=== PATIENT | female | born 2000 | race Two or more races ===

== ENCOUNTER → 2024-08-13 | Outpatient (CLI) | payer MEDICAID, SELFPAY ==
--- NOTE | 2024-08-13 15:00 | XR_ITS ---
Examination: OB Transvaginal ultrasound of the pelvis, complete Technique: Transvaginal sonographic images pelvis performed using burgos scale imaging Exam date and time: August 13, 2024 1754 hrs. Indications: Diagnosis high risk , preeclampsia of Findings: Uterus 11.6 cm CRL 6.1 cm corresponds to 12 weeks 4 days gestational age Cardiac motion 166 BPM Ovaries obscured by bowel gas Impression: Viable intrauterine gestation 12 weeks 4 days.
== END | disposition home or self-care (01) ==
PROVIDERS: PCP Nurse Practitioner Family; Referring Provider Obstetrics & Gynecology; Visit Provider Obstetrics & Gynecology
DX: O09.91 Supervision of high risk pregnancy, unspecified, first trimester (principal); Z3A.12 12 weeks gestation of pregnancy
CPT/HCPCS: 76817

== ENCOUNTER 2024-08-15 10:10 | Emergency (ER) | payer MEDICAID, SELFPAY ==
[2024-08-15 10:12] VITALS: BMI 30.7
[2024-08-15 10:56] VITALS: BP 135/78; PULSE 83; RESP 16; TEMP 36.9; O2SAT 100
--- NOTE | 2024-08-15 11:04 | XR_ITS ---
Examination: Duplex scan of the lower extremity, unilateral left Date and time of exam: August 15, 2024 1117 hrs. Indications: Left leg warmth and edema 3 days Technique: Duplex scan of the extremity veins using B-mode/grayscale imaging and Doppler spectral analysis and color flow Attention is directed to internal echogenicity, compression and augmentation involving these veins, color flow assessment, spectral analysis Findings: Major deep venous structures in the extremity demonstrate normal course and caliber. There is no evidence of deep vein thrombosis. Normal color flow and spectral analysis Impression: Negative for DVT..
--- NOTE | 2024-08-15 12:34 | EDNOTE_ITS ---
<Statement entered by Sadaf Anthony MD - 08/18/24 07:01> As co-signing physician, I was present and available for consult prn. I concur with the plan and care as documented by the midlevel provider. Lower Extremity Injury RME/HPI General Chief Complaint: Extremity Injury, Lower Stated Complaint: LEFT LEG SWELLING, 14 WK PREG R/O DVT Time Seen by Provider: 08/15/24 10:59 Arrival date/time: 08/15/24 10:10 24-year-old female presents emergency department today for complaints of left leg pain patient reports approximately 14 weeks was instructed to come to the ER to rule out DVT Limitations: no limitations Related Data Previous Rx's ?Medication ?Instructions ?Recorded hydrocodone 5 mg-acetaminophen 300 1 tab PO Q8H PRN pa in #20 tabs 12/27/20 mg tablet ibuprofen 800 mg tablet 800 mg PO Q8H #30 tabs 12/27 famotidine 20 mg tablet 20 mg PO QDAY #30 tabs 04/27 sucralfate 1 gram tablet (Carafate) 1 g PO BID #30 tab s 04/27/22 Allergies Allergy/AdvReac Type Severity Reaction Status Date / Time No Known Drug Allergies Allergy Unknown Verified 08/15/24 10:13 Review of Systems Review of Systems Systems Reviewed: All systems reviewed, normal except as documented Constitutional Constitutional: Reports system reviewed and no additional complaints, except as documented, Denies fever(s) and Denies headache(s) Eyes Eyes: Reports system reviewed and no additional complaints, except as documented and Denies blurry vision ENT Ears, Nose, Mouth, and Throat: Reports system reviewed and no additional complaints, except as documented, Denies headache(s), Denies nasal congestion and Denies nasal discharge Cardiovascular Cardiovascular: Reports system reviewed and no additional complaints, except as documented, Denies chest pain and Denies dyspnea Respiratory Respiratory: Reports system reviewed and no additional complaints, except as documented, Denies chest congestion, Denies cough and Denies dyspnea Gastrointestinal Gastrointestinal: Reports system reviewed and no additional complaints, except as documented and Denies abdominal pain Musculoskeletal Musculoskeletal: Reports system reviewed and no additional complaints, except as documented and Reports other (Pain leg left) Integumentary/Breasts Skin/Breast: Reports system reviewed and no additional complaints, except as documented and Denies rash Neurologic Neurologic: Reports system reviewed and no additional complaints, except as documented, Reports as per HPI and Denies headache(s) Past Medical History Past Medical History NEUROLOGIC: Negative Neurological Disorders or Seizures CARDIAC: Negative Cardiac Disorders or Congestive Heart Failure RESPIRATORY: Negative Chronic Obstructive Pulmonary Disease (COPD) GASTROINTESTINAL: Negative Gastrointestinal Disorders, Hepatitis or Colorectal Cancer GENITOURINARY: Positive Genitourinary Disorders; Negative Renal Disease or Prostate Cancer REPRODUCTIVE: Negative Breast Cancer or Testicular Cancer MUSCULOSKELETAL: Negative Musculoskeletal Disorders or Bone Cancer ENDOCRINE: Negative Endocrine Disorders, Diabetes Mellitus Type 1 or Diabetes Mellitus Type 2 HEMATOLOGIC: Negative Blood Disorders or Anemia OTHER HISTORY: Positive Hospitalization; Negative Autoimmune Disease, Down Syndrome, Developmental Delay, Shingles, Falls, Blood Transfusions, Blood Transfusion Reaction, Anesthesia Reactions, Organ Transplant, Chemotherapy, Radiation Therapy, Hyperbaric Therapy, MRSA, VRSA, Vancomycin-Resistant Enterococci, Human Immunodeficiency Virus (HIV), Chicken Pox, Measles, Mumps, Rubella (Vietnamese Measles), Pertussis, Clostridium Difficile, Cancer, Breast Cancer, Cervical Cancer, Colorectal Cancer, Lung Cancer, Ovarian Cancer, Prostate Cancer or Testicular Cancer Family History FAMILY HISTORY: Negative Family Psychiatric Problems, Family Respiratory Disorders, Family Cardiac Disorders, Family Gastrointestinal Problems, Family Cancer, Family Surgery or Family Anesthesia Reaction Surgical History SURGICAL: Positive Section; Negative Organ Transplant Social History SMOKING STATUS: Never smoker SECOND HAND EXPOSURE: No ED Exam General Limitations: Present no limitations General appearance: Present alert and in no apparent distress Head Head exam: Present atraumatic Eye Eye exam: Present normal appearance, PERRL and EOMI ENT ENT exam: Present normal exam, normal oropharynx and mucous membranes moist Neck Neck exam: Present normal inspection, full ROM and trachea midline Chest Chest inspection: Present normal inspection and symmetric chest wall rise Respiratory Respiratory exam: Present normal lung sounds bilaterally Cardiovascular Cardiovascular exam: Present regular rate, normal rhythm and normal heart sounds Abdominal Exam Abdominal exam: Present soft and normal bowel sounds Extremities Exam Extremities exam: Present full ROM, tenderness, normal capillary refill and other (Left leg pain); Absent pedal edema, joint swelling or calf tenderness Back Exam Back exam: Present normal inspection and full ROM Neurological Exam Neurological exam: Present alert, oriented X3 and CN II-XII intact Psychiatric Psychiatric exam: Present normal affect and normal mood Skin Skin exam: Present warm, dry, intact and normal color Course Quality Measures none Orders Category Date Time Status US venous doppler LE LT Stat Exams 08/15/24 11:04 Completed Vital Signs Vital signs: Vital Signs Temperature 98.4 F 08/15/24 10:56 Pulse Rate 83 08/15/24 10:56 Respiratory Rate 16 08/15/24 10:56 Blood Pressure 135/78 H 08/15/24 10:56 Pulse Oximetry (%) 100 08/15/24 10:56 Oxygen Delivery Method Room Air 08/15/24 10:56 O2 saturation 100% room air with normal limits Extremity Injury, Lower MDM Narrative MDM Narrative:: 24-year-old female presents emergency department today for complaints of left leg pain patient reports approximately 14 weeks was instructed to come to the ER to rule out DVT On exam patient well-appearing patient does not appear ill or toxic in no acute distress patient is no bruising or swelling to her leg no erythema DVT is unlikely but ultrasound obtained no acute abnormality noted Patient walks with steady gait Patient discharged home in no distress to follow-up with primary care doctor in the next 24 to 48 hours and for any worsening symptoms to return to the ER immediately Patient data External records reviewed:: [facility] previous records Clinical information provided by:: patient Social determinants that could affect healthcare access:: none Patient has the following chronic illnesses:: None How is presenting disease/condition affected by chronic disease/condition?: no chronic disease Evaluation data The following diagnostics were reviewed and interpreted by me:: radiology exam(s) Lab and/or radiology exams considered but not ordered:: Radiology Interpretation Summary: Reviewed by me Medications / Prescriptions Medications or Prescriptions considered but not ordered:: Given no meds Medication administrations:: Given no meds Consultations Consultation(s) initiated? (list below): No Diagnosis Extremity Injury, Lower Differential Diagnosis: other (Muscle sprain, muscle strain, DVT) Most likely diagnosis given after review of the tests above:: Muscle strain Admission Indicated Admission indicated?: not indicated Admission Request Was there a request for admission?: No Disposition Plan Disposition Plan: Discharge Discharge Attestation Discharge Attestation: The patient and all family members were given an opportunity to ask questions and understood the discharge instructions. Discharge instructions specifically effects, indications for sooner follow up or return to the emergency department, and the expected course of current diagnosis. Patient condition: Stable Discharge Plan Plan Patient Disposition: HOME (Self Care) Disposition Comment: Stable Prescriptions/Referrals Prescriptions/Med Rec: No Action ibuprofen 800 mg tablet 800 mg PO Q8H Qty: 30 3RF hydrocodone-acetaminophen 5-300 mg tablet 1 tab PO Q8H MDD 4 PRN (Reason: pain) Qty: 20 0RF famotidine 20 mg tablet 20 mg PO QDAY Qty: 30 1RF sucralfate [Carafate] 1 gram tablet 1 g PO BID Qty: 30 1RF Problem List Clinical Impression: Left leg pain Patient/Caregiver Discharge Instructions Education Materials: ED RICE Additional Instructions: Please follow up with your primary care doctor in the next 24-48hrs for any worsening symptoms return here immediately Print Language: German Stand Alone Forms: Iraida Award Info., Work/School Release, Patient Portal Info Letter PA/TRIAL JUSTICE Supervising Physician PA/TRIAL JUSTICE Supervising Physician: dr anthoyn
== END 2024-08-15 12:46 | disposition home or self-care (01) ==
LOC: SERX 12:55
PROVIDERS: Emergency Provider Emergency Medicine; PCP Nurse Practitioner Family
DX: O26.892 Other specified pregnancy related conditions, second trimester (principal); M79.605 Pain in left leg; Z3A.14 14 weeks gestation of pregnancy
CPT/HCPCS: 93971; 99284

== ENCOUNTER 2024-11-16 11:32 | Observation (INO) | payer MEDICAID, SELFPAY ==
[2024-11-16] VITALS (32 sets, daily range): BP systolic 99–113; BP diastolic 54–69; PULSE 72–86; RESP 18–98; TEMP 36.8; O2SAT 97–100; BMI 32.4
--- NOTE | 2024-11-16 12:11 | XR_ITS ---
Examination: Complete OB ultrasound greater than 14 weeks Date and time of exam: November 16, 2024 1306 hours INDICATIONS: Vaginal bleeding today, 26 week by history Findings: Viable intrauterine single fetus with single amniotic sac presentation cephalic spine maternal right Cardiac motion 141 BPM Placenta anterior grade 2 no abruption Umbilical cord insertion 3 vessel seen Amniotic fluid index 11.7 cm Cervix 2.8 cm Right ovary 3.8 cm arterial flow Left ovary 2.8 cm arterial flow. Composite estimated gestational age based on BPD, head circumference, abdominal circumference, femur length is 26 weeks 0 days Estimated weight 887 g. Survey of intracranial anatomy, spinal anatomy, abdominal anatomy, four-chamber heart performed with no abnormalities identified. IMPRESSION: Viable intrauterine gestation cephalic presentation No placenta previa or placental abruption.
[2024-11-16] MEDS: SIMETHICONE 80 MG CHEW PO ×2 (12:34)
--- NOTE | 2024-11-16 14:15 | PC.NURSE ---
1410 discharge instructions reviewed, pretem labor precautions, kick counts, copy given, pt agrees/underastands.
== END 2024-11-16 14:15 | disposition home or self-care (01) ==
PROVIDERS: Admitting Provider Specialist; Visit Provider Specialist
DX: O26.852 Spotting complicating pregnancy, second trimester (principal); O26.892 Other specified pregnancy related conditions, second trimester; R10.9 Unspecified abdominal pain; Z3A.26 26 weeks gestation of pregnancy
CPT/HCPCS: 59025; 59899; 76805; A9270

== ENCOUNTER 2024-12-16 15:59 | Observation (INO) | payer MEDICAID, SELFPAY ==
[2024-12-16] VITALS (37 sets, daily range): BP systolic 104–113; BP diastolic 60–68; PULSE 79–109; RESP 14–98; TEMP 37.1; O2SAT 97–99; BMI 33.7
[2024-12-16 17:05] LABS: Collection Type, Urine Clean Catch
[2024-12-16 17:46] LABS: FFN Specimen Descripton Clr Colrless Aqueous; Fetal Fibronectin Negative (Negative)
[2024-12-16 18:23] LABS: Bacteria,Urine Rare; Bilirubin,Urine Negative (Negative); Blood,Urine Negative (Negative); Clarity,Urine Turbid (Clear/Hazy); Color,Urine Yellow (Lt Yel-Yel); Glucose, Urine Negative (Negative); Ketones,Urine Negative (Negative); Leukocyte Esterase,Urine Positive (Negative); Nitrite,Urine Negative (Negative); PH,Urine 6.5 (5.0-7.0); Protein,Urine Negative (Neg - Trace); RBC,Urine 3 /hpf (0-3); Specific Gravity,Urine 1.015 (1.001-1.035); Squamous Epithelial Cell,Urine 14 /hpf (0-5); Urobilinogen,Urine Negative mg/dL (0.0-1.0); WBC,Urine 4 /hpf (0-5)
[2024-12-16] MEDS: cefTRIAXone 1,000 MG, LIDOCAINE 1% 20 ML 2.1 ML IM (19:03)
== END 2024-12-16 19:11 | disposition home or self-care (01) ==
PROVIDERS: Admitting Provider Obstetrics & Gynecology; PCP Physician Assistant; Visit Provider Obstetrics & Gynecology
DX: O26.893 Other specified pregnancy related conditions, third trimester (principal); Z3A.30 30 weeks gestation of pregnancy; R10.30 Lower abdominal pain, unspecified
CPT/HCPCS: 59025; 59899; 81001; 82731; 87086; 96372; J0696; J3490

== ENCOUNTER 2024-12-25 13:47 | Outpatient (AMB) | payer MEDICAID, SELFPAY ==
[2024-12-25 14:22] VITALS: BP 117/75; PULSE 88; RESP 17; TEMP 36.3; O2SAT 98; BMI 34.2
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
== END 2024-12-25 14:48 | disposition home or self-care (01) ==
LOC: HODSOBC 13:47
PROVIDERS: Supervising Provider Advanced Practice Midwife; Visit Provider Advanced Practice Midwife
DX: O09.293 Supervision of pregnancy with other poor reproductive or obstetric history, third trimester (principal); O34.219 Maternal care for unspecified type scar from previous cesarean delivery; O26.843 Uterine size-date discrepancy, third trimester; Z3A.31 31 weeks gestation of pregnancy; Z28.21 Immunization not carried out because of patient refusal
CPT/HCPCS: 99215; G0463

== ENCOUNTER 2025-01-18 10:37 | Outpatient (AMB) | payer MEDICAID, SELFPAY ==
[2025-01-18 10:45] VITALS: BP 135/89; PULSE 97; RESP 16; TEMP 36.2; O2SAT 98; BMI 35.2
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
== END 2025-01-18 11:25 | disposition home or self-care (01) ==
LOC: HODSOBC 10:37
PROVIDERS: Supervising Provider Obstetrics & Gynecology; Visit Provider Obstetrics & Gynecology
DX: O09.293 Supervision of pregnancy with other poor reproductive or obstetric history, third trimester (principal); O34.219 Maternal care for unspecified type scar from previous cesarean delivery; Z3A.35 35 weeks gestation of pregnancy
CPT/HCPCS: 99213; G0463

== ENCOUNTER 2025-01-23 09:12 | Outpatient (AMB) | payer MEDICAID, SELFPAY ==
[2025-01-23 09:39] VITALS: BP 111/70; PULSE 92; RESP 16; TEMP 36.2; O2SAT 98; BMI 35.2
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
== END 2025-01-23 10:07 | disposition home or self-care (01) ==
LOC: HODSOBC 09:12
PROVIDERS: Supervising Provider Obstetrics & Gynecology; Visit Provider Obstetrics & Gynecology
DX: O09.293 Supervision of pregnancy with other poor reproductive or obstetric history, third trimester (principal); O34.219 Maternal care for unspecified type scar from previous cesarean delivery; Z3A.35 35 weeks gestation of pregnancy
CPT/HCPCS: 99213; G0463

== ENCOUNTER 2025-02-04 10:37 | Outpatient (AMB) | payer MEDICAID, SELFPAY ==
[2025-02-04 11:40] VITALS: BP 128/75; PULSE 86; RESP 16; TEMP 36.5; O2SAT 98; BMI 35.4
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
== END 2025-02-04 11:53 | disposition home or self-care (01) ==
LOC: HODSOBC 10:37
PROVIDERS: Supervising Provider Obstetrics & Gynecology; Visit Provider Obstetrics & Gynecology
DX: O09.293 Supervision of pregnancy with other poor reproductive or obstetric history, third trimester (principal); O34.219 Maternal care for unspecified type scar from previous cesarean delivery; Z36.85 Encounter for antenatal screening for Streptococcus B; Z3A.37 37 weeks gestation of pregnancy
CPT/HCPCS: 99214; G0463

== ENCOUNTER 2025-02-14 10:18 | Inpatient (IN) | payer MEDICAID, SELFPAY ==
[2025-02-14] VITALS (14 sets, daily range): BP systolic 106–131; BP diastolic 49–77; PULSE 68–99; RESP 13–19; TEMP 36.6–36.9; O2SAT 19–100; BMI 37.0; BMI 38.1
--- NOTE | 2025-02-14 11:49 | ESHP_ITS ---
Documentation for date of: 02/14/25 OB Labor/Induct. HPI History of Present Illness Chief complaint: Schedule repeat : 3 Para: 2 Term pregnancies: 2 pregnancies: 0 Living children: 2 History of Abortions: Spontaneous and Elective: 0 History of Vaginal deliveries: 0 History of sections: Yes (x2, 2018, 2020) History of : No Date of last menstrual period: 05/02/24 DOMONIQUE: 02/21/25 Gestational Age (weeks): 39 Gestational Age (days): 0 Gestational age based on last menstrual period: 41 History of present illness: 24-year-old 3 para 2 at 39 weeks presents for scheduled repeat low- transverse . Patient denies any contractions or leakage of fluid or vaginal bleeding and reports adequate movements. Patient received initial care at [facility] and she transferred over to the [facility] service at 32 weeks. All her records were reviewed as scanned into her chart Labs Labs: Positive: Rubella Titre, Negative: RPR, Hepatitis B, HIV and Group Beta Strep and Unknown: Chlamydia, Gonorrhea, Herpes Type 1, Herpes Type 2 and Covid-19 Past Medical History Surgical History SURGICAL: Positive Section (x2, 2018, 2020) Meds Home Medications and Allergies Home Medications ?Medication ?Instructions ?Recorded ?Confirmed ?Type aspirin 81 mg tablet,delayed 81 mg PO BID 11/16/2401/31 History release Allergies Allergy/AdvReac Type Severity Reaction Status Date / Time No Known Drug Allergies Allergy Unknown Verified 02/14/25 10:31 OB Exam Physical Exam Vital signs: Temp Pulse Resp BP 98.1 F 99 18 128/77 02/14/25 11:00 02/14/25 10:50 02/14/25 11:00 02/14/25 10:50 Constitutional Constitutional: no acute distress Routine HEENT Exam Head: Present normocephalic and atraumatic Eye: Present EOMI and PERRL ENT: Present mucous membranes moist Routine Neck Exam Neck: Present supple and trachea midline Routine Cardiovascular Exam Cardiovascular: Present RRR Routine Abdominal Exam Abdominal: Present soft and normoactive bowel sounds Detailed Labor and Delivery Exam Dilation (cm): 0 Effacement (%): 0 Cervix position: posterior station: -4 Consistency: firm Presentation: Vertex Baseline heart rate: 145 monitor accelerations: 15x15 monitor decelerations: None [facility] variability: Average (6-10) Routine Extremities Exam Extremities: Present full ROM Routine Skin Exam Skin: Present intact, dry and warm Routine Neurological Exam Neurological: Present alert, oriented X3 and CN II-XII intact Routine Psychiatric Exam Psychiatric: Present normal affect and normal thought process OB Assessment & Plan Assessment and Plan (1) , high-risk, history of previous obstetrical problem: Status: Acute Assessment and plan: Admit to inpatient status for repeat low transverse IV access, CBC, type and screen, LR at 125, RPR, COVID-19 test GBS negative Ancef 2 g prior to surgery start Gamboa catheter to drainage SCDs for DVT prophylaxis Anesthesia to preop for spinal anesthesia Scheduled for surgery. (2) Encounter for care in third trimester of first : Status: Acute (1) , high-risk, history of previous obstetrical problem Qualifiers: Trimester: third trimester Qualified Code(s): O09.293 - Supervision of with other poor reproductive or obstetric history, third trimester
[2025-02-14 11:55] LABS: Basophils # (Auto) 0.0 Thou/mm3 (0.0-0.2); Basophils % (Auto) 0 % (0-2.5); Eosinophils # (Auto) 0.1 Thou/mm3 (0.0-0.5); Eosinophils % (Auto) 1 % (0-10); Hematocrit 32.7 % (36.0-46.0); Hemoglobin 10.6 g/dL (12.0-16.0); Immature Granulocytes Auto 0.12 Thou/mm3 (0.00-0.00); Lymphocytes # (Auto) 2.0 Thou/mm3 (1.0-4.8); Lymphocytes % (Auto) 18 % (10-50); Mean Corpuscular HGB Conc 32.4 g/dl (31.0-37.0); Mean Corpuscular Hemoglobin 25.3 pg (25.0-35.0); Mean Corpuscular Volume 78 fL (80-100); Monocytes # (Auto) 0.6 Thou/mm3 (0.0-0.8); Monocytes % (Auto) 6 % (0-12); Neutrophils # (Auto) 7.9 Thou/mm3 (1.8-7.7); Neutrophils % (Auto) 74 % (37-80); Nucleated Red Blood Cell # 0.00 Thou/mm3 (0.00-0.00); Nucleated Red Blood Cell % 0 /100 WBC (0); Platelet Count 248 Thou/mm3 (140-440); RDW Standard Deviation 38.8 fL (36.4-46.3); Red Blood Count 4.19 Miln/mm3 (4.00-5.20); White Blood Count 10.7 Thou/mm3 (3.6-11.0)
[2025-02-14 12:06] LABS: Amphetamine/Metham Scrn,Ur OB Negative (Negative); Benzoylecgonine Screen, Ur OB Negative (Negative); Opiate Screen,Urine OB Negative (Negative); THC Screen,Urine OB Negative (Negative)
[2025-02-14 12:32] LABS: Syphilis Nonreactive (Nonreactive)
[2025-02-14] MEDS: RINGERS LACTATED 1000 ML 1,000 ML 100 ML IV (12:36)
[2025-02-14] MEDS: ceFAZolin/D5W 2 GM IV 2 GM/100 ML BAG IV (13:24)
[2025-02-14] MEDS: FAMOTIDINE INJ 10 MG/ML VIAL 2 ML 20 MG IV (13:25)
[2025-02-14] MEDS: METOCLOPRAMIDE INJ 5 MG/ML VIAL 2 ML 10 MG IVP (13:26)
[2025-02-14] MEDS: SIMETHICONE 80 MG CHEW PO (15:02)
[2025-02-14] MEDS: OXYTOCIN in NS 20 units 20 UNIT/1,000 ML BAG 125 UNIT IV ×2 (16:14→23:07)
[2025-02-14] MEDS: KETOROLAC INJ 30 MG/ML VIAL IVP (20:05)
[2025-02-15] VITALS: BP 98/60; PULSE 77; RESP 18; TEMP 37.2; O2SAT 99
[2025-02-15] MEDS: KETOROLAC INJ 30 MG/ML VIAL IVP (01:43)
[2025-02-15 05:00] VITALS: BP 99/62; PULSE 82; RESP 18; TEMP 36.6; O2SAT 98
[2025-02-15 06:14] LABS: Basophils # (Auto) 0.1 Thou/mm3 (0.0-0.2); Basophils % (Auto) 0 % (0-2.5); Eosinophils # (Auto) 0.1 Thou/mm3 (0.0-0.5); Eosinophils % (Auto) 0 % (0-10); Hematocrit 27.6 % (36.0-46.0); Hemoglobin 9.1 g/dL (12.0-16.0); Immature Granulocytes Auto 0.12 Thou/mm3 (0.00-0.00); Lymphocytes # (Auto) 2.8 Thou/mm3 (1.0-4.8); Lymphocytes % (Auto) 21 % (10-50); Mean Corpuscular HGB Conc 33.0 g/dl (31.0-37.0); Mean Corpuscular Hemoglobin 26.2 pg (25.0-35.0); Mean Corpuscular Volume 80 fL (80-100); Monocytes # (Auto) 1.2 Thou/mm3 (0.0-0.8); Monocytes % (Auto) 9 % (0-12); Neutrophils # (Auto) 9.4 Thou/mm3 (1.8-7.7); Neutrophils % (Auto) 69 % (37-80); Nucleated Red Blood Cell # 0.00 Thou/mm3 (0.00-0.00); Nucleated Red Blood Cell % 0 /100 WBC (0); Platelet Count 211 Thou/mm3 (140-440); RDW Standard Deviation 40.0 fL (36.4-46.3); Red Blood Count 3.47 Miln/mm3 (4.00-5.20); White Blood Count 13.7 Thou/mm3 (3.6-11.0)
[2025-02-15 07:30] VITALS: BP 114/69; PULSE 77; RESP 18; TEMP 36.9; O2SAT 98
[2025-02-15] MEDS: DOCUSATE SOD 100 MG CAPSULE PO (08:32)
[2025-02-15] MEDS: SIMETHICONE 80 MG CHEW PO ×2 (09:03→22:20)
--- NOTE | 2025-02-15 10:15 | ESPR_ITS ---
Subjective Subjective Interval history: Delivery type: with bilateral salpingectomy Patient doing well this morning. No acute complaints. Ambulating, tolerating p.o., and voiding without difficulty. HTN/Pre-E screen negative: No CP, SOB, WILSON, visual changes, RUQ pain. : [Yes Lochia: diminishing Bowel: Flatus + / UOP: Adequate Exam Vital Signs Temp Pulse Resp BP Pulse Ox O2 Del Method 98.5 F 77 18 114/69 98 Room Air 02/15/25 07:30 02/15/25 07:30 02/15/25 07:30 02/15/25 07:30 02/15/25 07:30 02/15/25 07:30 Constitutional Constitutional: no acute distress Routine HEENT Exam Head: Present normocephalic and atraumatic Eye: Present EOMI and PERRL ENT: Present mucous membranes moist Routine Neck Exam Neck: Present supple and trachea midline Routine Respiratory Exam Respiratory: Present chest non-tender, lungs clear, normal breath sounds and no resp distress Routine Cardiovascular Exam Cardiovascular: Present RRR Routine Abdominal Exam Abdominal: Present soft and normoactive bowel sounds Routine Extremities Exam Extremities: Present full ROM Routine Skin Exam Skin: Present intact, dry and warm Routine Neurological Exam Neurological: Present alert, oriented X3 and CN II-XII intact Routine Psychiatric Exam Psychiatric: Present normal affect and normal thought process Objective Labs 02/15/25 05:55 Labs: Laboratory Results - last 24 hr 02/14/25 02/15/25 11:10 05:55 WBC 10.7 13.7 H RBC 4.19 3.47 L Hgb 10.6 L 9.1 L Hct 32.7 L 27.6 L MCV 78 L 80 MCH 25.3 26.2 MCHC 32.4 33.0 RDW Std Deviation 38.8 40.0 Plt Count 248 211 D Neut % (Auto) 74 69 Lymph % (Auto) 18 21 [place] % (Auto) 6 9 Eos % (Auto) 1 0 Baso % (Auto) 0 0 Neut # (Auto) 7.9 H 9.4 H Lymph # (Auto) 2.0 2.8 [place] # (Auto) 0.6 1.2 H Eos # (Auto) 0.1 0.1 Baso # (Auto) 0.0 0.1 Immature Gran # (Auto) 0.12 H 0.12 H Absolute Nucleated RBC 0.00 0.00 Immature Gran % 1 H 1 H Nucleated RBC % 0 0 Urine Opiates Screen Negative U Amphetamin/Meth Scrn Negative U Cocaine Metab Screen Negative U Marijuana (THC) Screen Negative Syphilis Serology Nonreactive Blood Type A Positive Antibody Screen NEGATIVE Blood Bank Wristband ID Yes Assessment & Plan Problem List (1) , high-risk, history of previous obstetrical problem: Status: Acute (2) Encounter for care in third trimester of first : Status: Acute (3) delivery delivered: Status: Acute Assessment and plan: 1. Continue routine /post-op care 2. Labs reviewed, cbc appropriate 3. Remove dressing/Gamboa 4. Encourage to ambulate, shower 5. Encourage PO intake, breast feeding Time Spent With Patient Time: Total time spent is greater than 50% in coordination of care (as documented) at patient's floor/unit and/or counseling patient:
--- NOTE | 2025-02-15 10:58 | PC.CC ---
0900-ASW completed a face to face initial assessment with the pt at bedside. Infant was at bedside in the [facility]. Pt is a 24 yo female who delivered an male infant via . ASW explained the reason for the referral and the pt understood, which was h/o THC use. Pt stated she had past h/o of THC use, but stated it was months prior to her . Pt stated she was consistent [facility] care at [facility]. Pt reports the infants Peds will be Andrea Addison at [facility]. Pt reports she delivered the at 41 weeks via . Pt reports she has 2 children at home, ages 5, 4 with no h/o of CPS intervention. FOB was present and stated his name is Reji Morrissey [phone], which she stated he will provide transportation home upon d/c. Pt reports she has all she needs at home, such as clothes and diapers and has strong family support. Pt reports she does her own ADLs and does not use O2, does not use DME. Pt reports that the infant was not on Lights and is unsure if the has passed the hearing test. Pt reports at this time she does not have any medical concerns for the infant. Pt denies substance use/abuse, denies CPS history. ASW does not have any worries or concerns regarding pt and . No CPS concerns and pt is cleared by SS.
[2025-02-15 12:08] VITALS: BP 115/77; PULSE 73; RESP 19; TEMP 36.9; O2SAT 100
[2025-02-15] MEDS: IBUPROFEN TAB 400 MG TABLET 800 MG PO (15:07)
--- NOTE | 2025-02-15 16:37 | ESOP_ITS ---
Operative Note - RECREATION SUPERVISOR Procedure Date of procedure: 02/14/25 Procedure Performed: Repeat low-transverse section Surgical sterilization by bilateral salpingectomy Indication: 24-year-old 3 para 2 with previous x 2 Anesthesia type: Spinal Procedure description: Informed consent was obtained and the patient was brought to the operating room. Identity was verified using two patient identifiers. Spinal anesthesia was administered and the patient was placed in the supine position. The abdomen and perineum were prepped and draped in the usual sterile fashion. A Gamboa catheter was inserted for continuous bladder drainage. Timeout was performed. A Pfannenstiel skin incision was made, and a 1.5-inch strip of the patient?s previous scar was excised. The incision was carried down through the subcutaneous tissue to the level of the rectus fascia, which was incised sharply and extended laterally. Significant thickening of the peritoneum was noted. The peritoneum was entered sharply using Metzenbaum scissors. A self-retaining retractor was placed. The bladder was reflected inferiorly, and the lower uterine segment was exposed. A low transverse uterine incision was made. The membranes were ruptured, and the fetus was delivered in vertex presentation. The cord was clamped and cut, and the infant was handed to the team. The placenta was delivered manually, and the uterus was cleared of clots and membranes. The uterine incision was closed in two layers using 1-0 Monocryl. Additional [id number]-[id number] sutures were placed at the left angle and areas of active oozing to achieve hemostasis. Multiple collateral vessels and bleeding points were noted between the peritoneum, omentum, and undersurface of the rectus muscle, and these were ligated with suture or cauterized as needed. A bilateral salpingectomy was performed using the ENSEAL device, beginning on the right side, sealing the tube from the fimbriated end to the cornual junction. The specimen was handed off the field. The same procedure was repeated on the left side. The uterus was returned to the pelvis and hemostasis was confirmed. A 2-0 chromic suture was used to close the peritoneum. The rectus fascia was closed with 0 Vicryl in a running fashion. The subcutaneous tissue was approximated using 2-0 plain gut, and the skin was closed using metal ryan. A Telfa and ABD dressing was applied. The patient tolerated the procedure well and was transferred to recovery in stable and awake condition. All instrument, sponge, and lap counts were correct ?2. Estimated blood loss (ml): 750 Complications: none Surgical staff Operation Date: 02/14/25 12:45 Case Staff EQUIPMENT COORDINATOR: Vannessa Saavedra EQUIPMENT COORDINATOR: Kartik Alvarado RNring packer: Refugio Jain Diagnosis Discharge Diagnosis (1) , high-risk, history of previous obstetrical problem: Status: Acute (2) delivery delivered: Status: Acute (3) Encounter for sterilization: Status: Acute Problem List Completed Was Problem List Reviewed/Reconciled?: Yes (1) , high-risk, history of previous obstetrical problem Qualifiers: Trimester: third trimester Qualified Code(s): O09.293 - Supervision of with other poor reproductive or obstetric history, third trimester
--- NOTE | 2025-02-15 16:37 | PD.LDDELS ---
Data (Nelson) Data Hx Section: Yes (x2, 2018, 2020) : 4 Term: 2 : 0 Livin Abortions: Spontaneous & Theraputic: 0 Delivery Data (Nelson) Labor Data Induction/Augmentation Agent: None ROM date: 02/14/25 ROM time: 13:56 Amniotic membrane rupture type: Artificial Amniotic fluid description: Clear Delivery Data Onset of labor date: 02/14/25 Onset of labor time: 13:56 Complete dilation date: 02/14/25 Complete dilation time: 13:56 Branford delivery date: 02/14/25 delivery time: 13:56 Placenta delivery date: 02/14/25 Placenta delivery time: 13:57 Stage 1 total time: Labor - Stage 1 Duration 0 minutes Delivered by: Bria Delivery nurse: Lupe Barkleyr1 [place] nurse: Elva/Renny Painting Supervisor at delivery: Yes (Dionisio) Support person(s) at delivery: FOB Other staff at delivery: Moon, BLADIMIR Cebab2, OB OR tech Delivery Method Delivery method: Low Transverse Presentation: Vertex Anesthesia Type Anesthesia Type: Spinal Placenta Placenta delivery description: Manual Removal Cord blood sent to lab: Yes cord blood collection: Cord Blood Type Episiotomy Episiotomy description: None Umbilical Cord cord description: 3 Vessels Branford Data (Nelson) Data order: 1 's gender: Male Identification band number: [id number] weight (gms): 3470 g Weight (pounds): 7 lbs and 10.4 ozs Branford length: 52.07 cm 1 minute: 7 5 minutes: 9
[2025-02-15 20:30] VITALS: BP 119/76; PULSE 89; RESP 16; TEMP 36.6; O2SAT 98
[2025-02-15] MEDS: ACETAMINOPHEN 325 MG TABLET 650 MG PO (20:47)
[2025-02-16 04:15] VITALS: BP 126/70; PULSE 90; RESP 20; TEMP 36.7; O2SAT 99
[2025-02-16] MEDS: SIMETHICONE 80 MG CHEW PO (04:36)
[2025-02-16] MEDS: IBUPROFEN TAB 400 MG TABLET 800 MG PO (04:36)
[2025-02-16 07:10] VITALS: BP 114/74; PULSE 80; RESP 18; TEMP 36.8; O2SAT 99
[2025-02-16] MEDS: DOCUSATE SOD 100 MG CAPSULE PO (08:44)
--- NOTE | 2025-02-16 10:08 | ESDS_ITS ---
DS: Providers Provider Date of admission: 02/14/25 10:18 Primary care physician: STEWART Walker Admitting Provider: Chris Fraser MD Attending Provider on Admission: Chris Fraser MD Consults: 02/14/25 14:16 Referral Routine Comment: Attending Provider on DC: Linda Walker MD Discharging Provider: Linda Walker MD DS: Diagnosis Discharge Diagnosis (1) delivery delivered: Status: Acute (2) Encounter for sterilization: Status: Acute (3) , high-risk, history of previous obstetrical problem: Status: Acute (4) anemia: Status: Acute Problem List Completed Was Problem List Reviewed/Reconciled?: Yes Summary/Hosp Course Brief History: 24-year-old 3 para 2 at 39 weeks presents for scheduled repeat low- transverse . Patient denies any contractions or leakage of fluid or vaginal bleeding and reports adequate movements. Patient received initial care at [facility] and she transferred over to the [facility] service at 32 weeks. All her records were reviewed as scanned into her chart -- Piero is doing well on POD 2 s/p uncomplicated RLTCS with BTL via bilateral salpingectomy. She has had an uncomplicated post-operative course, meeting all milestones and feels ready for discharge home. She is ambulating without lightheadedness, tolerating regular diet no n/v, spontaneously voiding without issue. She has no chest pain or shortness of breath. No fevers or chills. Pain well controlled. Vitals normal, benign exam. Hemodynamically stable with no evidence of infection. Post-op Hgb 9.1 from 10.6. No sx of anemia. Peripartum Data Delivery Method: Low Transverse Episiotomy Description: None Procedures: Procedures Operation Date: 02/14/25 12:45 Actual Procedure Side Surgeon p w/tubal OB Not Applicable Chris Fraser MD Status at Discharge Functional status at discharge: independent ambulation Overall status at discharge: patient is back to baseline Time Spent with Patient Time attestation: Total time spent providing and/or coordinating discharge services: Exam Vital Signs Temp Pulse Resp BP Pulse Ox O2 Del Method 98.3 F 80 18 114/74 99 Room Air 02/16/25 07:10 02/16/25 07:10 02/16/25 07:10 02/16/25 07:10 02/16/25 07:10 02/16/25 07:10 Narrative Exam General: well developed, well nourished, no acute distress, conversant Cardiac: normal heart rate Lungs: breathing without distress Abdomen: soft, post-gravid, non-tender, no rebound or guarding, pfannenstiel incision has ryan in place. Incision well reapproximated. No erythema, drainage or induration. Fundus firm at u-2cm. Extremities: no pain with palpation of calves, trace edema of BLE Discharge Plan Plan Patient Disposition: HOME (Self Care) Patient condition on transfer: Stable Prescriptions/Referrals Prescriptions/Med Rec: New hydrocodone-acetaminophen 5-325 mg Tablet 1 tab PO Q6HR MDD 4 PRN (Reason: Patient rated pain 9 to 10) 5 Days Qty: 20 0RF docusate sodium 100 mg Capsule 100 mg PO QDAY 30 Days Qty: 30 0RF ibuprofen 400 mg Tablet 800 mg PO Q8HR PRN (Reason: Pain Scale 4-6 (Moderate) 10 Days Qty: 40 0RF Continued Vitamin 27 mg iron- 800 mcg tablet 1 tab PO DAILY Qty: 60 2RF Discontinued aspirin 81 mg tablet,delayed release (DR/EC) 81 mg PO BID Patient Comments: TAKE TWO TABLETS BY MOUTH EVERY DAY FOR THE HEART FOR CIRCULATION Referrals: Alice Smith FNP [Primary Care Provider] Chris Fraser MD [Physician, [facility]] Patient/Caregiver Discharge Instructions Meds to Beds: Yes Discharge Activity: activity as tolerated Other Discharge Activity Instructions:: vaginal rest and no heavy lifting more than 10 pounds for 6 weeks, no driving while taking narcotic. Keep incision clean and dry, do not submerge. Other Discharge Diet Instructions: Regular Education Materials: C Section Dc Print Language: Yi Activity Restrictions/Additional Instructions: follow up with Dr. Fraser in 1 to 2 weeks for staple removal, call clinic for appointment if not already scheduled Stand Alone Forms: Iraida Award Info., Patient Portal Info Letter, DC from Surgery Discharge Order Discharge Orders: Discharge (Routine); Ordered 02/16/25 Ordered By: Linda Walker Planned Discharge Date 02/16/25 (3) , high-risk, history of previous obstetrical problem Qualifiers: Trimester: third trimester Qualified Code(s): O09.293 - Supervision of with other poor reproductive or obstetric history, third trimester
== END 2025-02-16 11:28 | disposition home or self-care (01) | DRG 539 ==
LOC: S4SX 10:22 → S4NX 13:34
PROVIDERS: Admitting Provider Obstetrics & Gynecology; PCP Nurse Practitioner Family; Visit Provider Obstetrics & Gynecology
PROC: 0UL70ZZ Occlusion of Bilateral Fallopian Tubes, Open Approach (ICD-10-PCS; CPT 59514; principal; 2025-02-14 12:30)
DX: O34.211 Maternal care for low transverse scar from previous cesarean delivery (principal); Z30.2 Encounter for sterilization; Z3A.39 39 weeks gestation of pregnancy; Z37.0 Single live birth
CPT/HCPCS: 36415; 59409; 80307; 85025; 86780; 86850; 86900; 86901; 94762; A4217; A4649; J0689; J1885; J2274; J2371; J2405; J2590; J2765; J3010; J3490; J7120; A9270; J2270

== ENCOUNTER 2025-02-28 09:58 | Outpatient (AMB) | payer MEDICAID, SELFPAY ==
[2025-02-28 10:09] VITALS: BP 117/79; PULSE 71; RESP 16; TEMP 36.6; O2SAT 98; BMI 34.9
--- NOTE | 2025-02-28 10:09 | AMBOBPPN_ITS ---
Vital Signs 02/28/25 10:09 Height 1.6 m Height Method Stated Weight 89.584 kg Weight Measurement Method Standing Scale BMI 34.9 BP 117/79 Blood Pressure Source Automatic Cuff Blood Pressure Location Left Upper Arm Position Sitting Respiration 16 Pulse 71 Pulse Source Monitor Temp 97.8 F Temp Source Oral Pulse Oximetry (%) 98 Oxygen Delivery Method Room Air Allergies/Home Meds Allergies & Medications Allergies No Known Drug Allergies Allergy (Unknown, Verified 02/28/25 10:10) Medication Reconciliation vits no.130-ferrous fum 27 mg iron-folic acid 800 mcg tablet ( Vitamin) 1 tab PO DAILY #60 tabs 12/25/24 [Rx Confirmed 02/28/25] docusate sodium 100 mg capsule 100 mg PO QDAY 30 days #30 caps 02/15/25 [Rx Confirmed 02/28/25] amoxicillin 875 mg-potassium clavulanate 125 mg tablet 1 tab PO BID 7 days #14 tabs 02/28/25 [Rx] Intake Visit Data Collection New Patient or Established: Established Patient (seen at [facility] within 3 years) Reason for Visit:: Seen by Clinical Staff ONLY (RN/MA): No Strainer Tender Required: No Do You Feel Safe at Home: Yes Authorities Contacted: N/A PCP or OBGYN visit in last 3 months: Yes Hx Now: No Are you currently on any form of Control: No Pain Present Currently: No Pain Scale Used: Duncan-Plummer/Numerical Pain scale:: 0 Smoking Status Smoking Status: Never smoker Immunizations Flu Vaccine in the Last 12 Months: No Flu Vaccine Exclusion Criteria: No Exclusion Criteria ACADEMIC ADVISEMENT DIRECTOR: Past Medical History Past Medical History: No Hx Neurological Disorders, No Hx Breast Cancer, No Hx Cardiac Disorders, No Hx Cancer, No Hx Blood Disorders, No Hx Anemia, No Hx Gastrointestinal Disorders, No Hx Renal Disease, No Hx Diabetes Mellitus Type 1 and No Hx Diabetes Mellitus Type 2 Questionnaires Covid-19 Vaccine Questionnaire Has patient been vacinated for Covid-19 Have you been vacinated for Covid-19: Yes Social History Living Situation History Lives With: Children Housing: Apartment Tobacco History Smoking Status: Never smoker Second Hand Smoke Exposure: No Alcohol History Alcohol Intake: Former Alcohol Intake Frequency: holidays/special occasions only Alcohol Intake Frequency Other:: Prior to Substance Use History Substance Use: MARIJUANA Domestic Abuse History Do You Feel Safe at Home: Yes EPDS - PP Depression Screening [place] Pospartum Depression Screen I have been able to laugh and see the funny side of things: (0) As much as I always could I have looked forward with enjoyment to things: (0) As much as I ever did I have blamed myself unnecessarily when things went wrong: (0) No, never I have been anxious or worried for no good reason: (0) No, not at all I have felt scared or panicky for no very good reason: (0) No, not at all Things have been getting on top of me: (0) No, I have been coping as well as ever I have been so unhappy that I have had difficulty sleeping: (0) No, not at all I have felt sad or miserable: (0) No, not at all I have been so unhappy that I have been crying: (0) No, never The thought of harming myself has occurred to me: (0) Never EPDS completed yes HPI Interval History: Piero Veliz presents for a postoperative visit following repeat section performed on February 15, 2025. The patient reports she is doing well overall. Her baby is also doing well and she is bottle feeding rather than . She denies any problems at her incision site. The patient did not receive a postoperative binder or compression garment following her surgery. She has a history of repeat section on February 15, 2025, with concurrent tubal ligation; metal ryan used due to removal of thick band of skin. She delivered a male infant via repeat section on February 15, 2025. Patient underwent tubal ligation at time of delivery. Currently 13 days at time of visit. ROS: Negative except as stated above, limited to ACADEMIC ADVISEMENT DIRECTOR and pertinent complaints. Exam Narrative Physical exam: - Abdominal: incision present with metal ryan. Ryan removed during examination. Some staple holes noted at incision site. Office Procedures [facility] Clinic LOC & Office Proc's Nursing/Assessment Patient Status: Established Patient OB Clinic Nursing Assessment: Medication Reconciliation, Update PMH in EMR and Vital Signs OB Clinic Coordination of Care: Complex Care and Chronic Disease 1-5, Consent,records obtained, informed consent, Education Simp Pt/Fam, Lab and Imaging orders, Results/Orders obtained and Staff clarify orders Established Patient Charge Established Patient Point Assignment: 105 Established Patient Point Charge: EP Level 3 (80-115) Assessment & Plan Diagnosis / Problem List (1) wound infection: Status: Acute (2) Encounter for routine follow-up: Status: Acute (3) Encounter for sterilization: Status: Acute Plan Status Post Repeat Section: - Patient is 13 days postoperative from repeat section performed on 02/15/2025. - Surgical ryan remain in place with concerning findings described as liter ally just hanging. - Metal ryan were used due to removal of thick band of skin requiring stronger closure. - Patient did not receive postoperative abdominal binder which is typically provided. - Tubal ligation performed during the section. Plan: - Remove surgical ryan today. - Prescribe 7-day course of antibiotics to prevent infection. - Recommend compression garment/corset for wound healing support. - Follow-up appointment in 3 weeks for final evaluation. - No control needed due to tubal ligation.
== END 2025-02-28 10:31 | disposition home or self-care (01) ==
LOC: HODSOBC 09:58
PROVIDERS: Supervising Provider Obstetrics & Gynecology; Visit Provider Obstetrics & Gynecology
DX: Z39.2 Encounter for routine postpartum follow-up (principal); O86.00 Infection of obstetric surgical wound, unspecified
CPT/HCPCS: 99213; G0463